=== PATIENT | male | born 1990 | race Caucasian/White ===

== ENCOUNTER 2017-04-05 01:47 | Emergency (ER) | payer BC, OTHER ==
[~2017-04-05] VITALS: Ht 175.3 cm; Wt 79.4 kg
[2017-04-05 01:47] VITALS: BP_SYST 121
== END 2017-04-05 02:35 ==
LOC: SED 01:47
DX: G92 Toxic encephalopathy (principal); Z88.2 Allergy status to sulfonamides
CPT/HCPCS: 99283

== ENCOUNTER 2017-04-05 11:17 | Emergency (ER) | payer BC, OTHER ==
[~2017-04-05] VITALS: Ht 172.7 cm; Wt 79.4 kg
[2017-04-05 11:27] VITALS: BP_SYST 140
[2017-04-05 14:12] LABS: HEMATOCRIT 44.7 % (36-54); HEMOGLOBIN 15.1 g/dL (14.0-18.0); MEAN CORPUSCULAR HEMOGLOBIN 29 pg (27-31); MEAN CORPUSCULAR HGB CONC 34 % (32-36); MEAN CORPUSCULAR VOLUME 87 fL (79.0-98.0); PLATELET COUNT (AUTO) 240 K/uL (130-430); RED BLOOD CELL COUNT(AUTO) 5.15 MIL/uL (4.2-6.2); RED CELL DISTRIBUTION WIDTH 12.9 % (9.0-15.0); WHITE BLOOD COUNT (AUTO) 12.5 K/uL (4.8-10.8)
[2017-04-05 14:23] LABS: ANION GAP 8 (5-15); CALCIUM 9.7 mg/dL (8.4-11.0); CHLORIDE 102 mmol/L (98-107); CREATININE 1.12 mg/dL (0.55-1.30); GFR AFRICAN AMERICAN 103 mL/min (>90); GLUCOSE 121 mg/dL (70-99); SODIUM SERUM 138 mmol/L (136-145); UREA NITROGEN, BLOOD 7 mg/dL (8-21)
[2017-04-05 14:36] LABS: BASOPHILS % (MANUAL) 0 % (0-2); EOSINOPHILS % (MANUAL) 0 % (0-7); LYMPHOCYTES % (MANUAL) 11 % (20-46); MONOCYTES % (MANUAL) 5 % (0-11)
[2017-04-05 14:59] LABS: ALANINE AMINOTRANSFERASE 34 U/L (12-78); ALCOHOL, BLOOD 3 mg/dL (<10); TOTAL BILIRUBIN 0.6 mg/dL (0.0-1.0)
[2017-04-05 15:14] LABS: ACETAMINOPHEN < 1 ug/mL (1-30); ALBUMIN 4.1 g/dL (3.4-4.8); ASPARTATE AMINOTRANSFERASE 33 U/L (10-37)
[2017-04-05 15:42] LABS: BARBITURATE, URINE NEGATIVE (NEG <=200); BENZODIAZEPINE, URINE NEGATIVE (NEG <=150); CANNABINOID, URINE NEGATIVE (NEG <=50); COCAINE, URINE NEGATIVE (NEG <=150); METHAMPHETAMINES SCREEN,URINE NEGATIVE (NEG <=500); OPIATE, URINE NEGATIVE (NEG <=100); PHENCYCLIDINE SCREEN,URINE NEGATIVE (NEG <=25); UR TRICYCLIC ANTIDEPRESSANTS NEGATIVE (NEG <=300); URINE AMPHETAMINE NEGATIVE (NEG <=500); URINE METHADONE NEGATIVE (NEG <=200); URINE OXYCODONE SCREEN NEGATIVE (NEG <=100); URINE PROPOXYPHENE SCREEN NEGATIVE (NEG <=300)
[2017-04-05 16:12] VITALS: BP_SYST 150
[2017-04-05] MEDS ORDERED: BACITRACIN 1 GM OINT TP ONE (16:15)
== END 2017-04-05 16:12 | disposition home or self-care (01) ==
LOC: SED 11:17
DX: S09.8XXA Other specified injuries of head, initial encounter (principal); S19.89XA Other specified injuries of other specified part of neck, initial encounter; Z88.2 Allergy status to sulfonamides; V89.2XXA Person injured in unspecified motor-vehicle accident, traffic, initial encounter; Y93.89 Activity, other specified; Y92.89 Other specified places as the place of occurrence of the external cause; Y99.8 Other external cause status
CPT/HCPCS: 36415; 70450; 72125; 80053; 80307; 85007; 85027; 99285; G0480; G0481; G0482